=== PATIENT | male | born 1990 | race Caucasian/White ===

== ENCOUNTER 2018-11-11 18:51 | Emergency (ER) | payer SELFPAY ==
[2018-11-11] MEDS: IBUPROFEN 800 MG TAB PO (21:03)
== END 2018-11-11 22:32 | disposition home or self-care (01) ==
LOC: FTE 18:51
DX: S70.312A Abrasion, left thigh, initial encounter (principal); W23.0XXA Caught, crushed, jammed, or pinched between moving objects, initial encounter; Y92.89 Other specified places as the place of occurrence of the external cause
CPT/HCPCS: 73550; 99283-25